=== PATIENT | female | born 1955 | race Caucasian/White ===

== ENCOUNTER 2018-04-29 17:49 | Emergency (ER) | payer BC ==
[2018-04-29] MEDS ORDERED: diphenhydrAMINE 50 MG/ML SDV IVPUSH ONE (18:03)
[2018-04-29] MEDS ORDERED: Ketorolac 30 MG/ML SDV IVPUSH ONE (18:03)
[2018-04-29] MEDS ORDERED: Sodium Chloride 0.9% 1,000 ML IV ONE (18:03)
[2018-04-29] MEDS ORDERED: Metoclopramide 10 MG/2 ML SDV IVPUSH ONE (18:03)
[2018-04-29] MEDS ORDERED: Labetalol 100 MG/20 ML MDV IVPUSH ONE (18:04)
--- NOTE | 2018-04-29 18:05 | EDM.PDOC ---
<Den Sanchez - Last Filed: 04/29/18 20:09> ED HPI GENERAL MEDICAL PROBLEM - General Chief Complaint: Cardiovascular Problem Stated Complaint: BLOOD PRESSURE PROBLEM Time Seen by Provider: 04/29/18 18:02 - Related Data Allergies Allergy/AdvReac Type Severity Reaction Status Date / Time No Known Allergies Allergy Verified 04/30/18 15:13 Home Meds: Home Meds ALPRAZolam [Xanax] 0.5 mg PO BID PRN 04/25/18 [History] Lisinopril 40 mg PO DAILY #30 tablet 04/27/18 [Rx] Metoprolol Succinate [Toprol XL 50mg] 100 mg PO DAILY 04/27/18 [History] Potassium Chloride 20 meq PO DAILY #30 tablet.er 04/27/18 [Rx] Sertraline [Zoloft] 50 mg PO BEDTIME 04/27/18 [History] Zolpidem Tartrate [Zolpidem Tartrate ER] 12.5 mg PO BEDTIME PRN 04/27/18 [ History] Course - Vital Signs Last Recorded V/S: Last Vital Signs Temp 36.1 C 04/29/18 17:57 Pulse 75 04/29/18 19:16 Resp 22 H 04/29/18 18:48 BP 171/78 H 04/29/18 19:16 Pulse Ox 100 04/29/18 17:57 - Orders/Labs/Meds Orders: Active Orders 24 hr Category Date Time Status EKG 12 Lead [EKG Documentation Completion] [RC] STAT Care 04/29/18 18:42 Active Labs: Laboratory Tests 04/29/18 Range/Units 19:23 Troponin I < 0.017 (0.00-0.056) ng/mL Meds: Medications Discontinued Medications Generic Name Dose Route Start Last Admin Trade Name Freq PRN Reason Stop Dose Admin Diphenhydramine HCl 25 mg 04/29/18 18:03 04/29/18 18:12 Benadryl IVPUSH 04/29/18 18:04 25 mg ONETIME ONE Administration Sodium Chloride 1,000 mls @ 1,000 mls/hr 04/29/18 18:03 04/29/18 18:15 Normal Saline IV 04/29/18 19:02 1,000 mls/hr ONETIME ONE Administration Ketorolac Tromethamine 30 mg 04/29/18 18:03 04/29/18 18:13 Toradol IVPUSH 04/29/18 18:04 30 mg ONETIME ONE Administration Labetalol HCl 20 mg 04/29/18 18:04 04/29/18 18:22 Normodyne IVPUSH 04/29/18 18:05 10 mg ONETIME ONE Administration Protocol Lorazepam 1 mg 04/29/18 18:14 04/29/18 18:34 Ativan IVPUSH 04/29/18 18:15 1 mg ONETIME ONE Administration Metoclopramide HCl 10 mg 04/29/18 18:03 04/29/18 18:14 Reglan IVPUSH 04/29/18 18:04 10 mg ONETIME ONE Administration - Re-Assessments/Exams Free Text/Narrative Re-Assessment/Exam: 04/29/18 20:[address] Sanabria. The patient's headache is gone. Her blood pressure is much better at 165/88. I feel we need to increase to 100mg daily of the toprol XL. She is getting a US of her kidneys on Friday and she will see Kylee Sanchez next Friday. Departure - Departure Time of Disposition: 20:15 Disposition: Home, Self-Care 01 Condition: Good Clinical Impression: Hypertensive urgency Headache Qualifiers: Headache type: unspecified Headache chronicity pattern: acute headache Intractability: not intractable Qualified Code(s): R51 - Headache Instructions: Hypertension, [id number], General Headache Without Cause, Easy- to-Read Referrals: PCP,Unknown [Ordering Only Provider] - Kylee Sanchez, BODY PRESS OPERATOR [Primary Care Provider] - 1 Week Forms: ED Department Discharge Additional Instructions: Take your medication as prescribed but take 2 of the toprol XL or metoprolol succinate 100mg daily. Please return if you are worse. - My Orders Last 24 Hours: My Active Orders 04/29/18 18:42 EKG 12 Lead [EKG Documentation Completion] [RC] STAT - Assessment/Plan Last 24 Hours: My Active Orders 04/29/18 18:42 EKG 12 Lead [EKG Documentation Completion] [RC] STAT <Yamilka Sanabria - Last Filed: 04/30/18 19:04> ED HPI GENERAL MEDICAL PROBLEM - General Source of Information: Reports: Patient History Limitations: Reports: No Limitations - History of Present Illness INITIAL COMMENTS - FREE TEXT/NARRATIVE: The patient is a 62-year-old female with a chief complaint of headache and high blood pressure. She has a history of both headaches and high blood pressure. She gets migraine headaches frequently. She states that she tends to get a headache when her blood pressure is high. She was here 2 days ago with blood pressures systolics in the 200s and a headache and was treated with a migraine cocktail and antihypertensive. She was also noted to be profoundly hypokalemic at that time and spent much of the day in the emergency department for potassium repletion. She returns today having had sudden onset return of her headache wrist a few minutes before coming to the emergency department. Headache is diffuse, sharp, similar to prior headaches. She has some nausea no vomiting. No vision changes. No focal weakness. No confusion. Feels similar to prior headaches. She did follow-up with her primary care provider today and her potassium earlier today was 3.1. She said that she did take both her lisinopril and her metoprolol this morning. She seems unsure about the dose. Nowak that her primary care provider increased one of her medications to 50 mg this afternoon?I suspect this would've been the metoprolol. Headache Pain Score (Numeric/FACES): 10 Past Medical History Cardiovascular History: Reports: Hypertension Genitourinary History: Reports: None Neurological History: Reports: Migraines Psychiatric History: Reports: Anxiety Oncologic (Cancer) History: Reports: Breast Other Oncologic History: left mastectomy - Past Surgical History HEENT Surgical History: Reports: Adenoidectomy, Oral Surgery, Tonsillectomy Female Surgical History: Reports: Mastectomy Social & Family History - Family History Family Medical History: Noncontributory - Tobacco Use Smoking Status *Q: Never Smoker - Caffeine Use Caffeine Use: Reports: Soda Other Caffeine Use: Daily - Recreational Drug Use Recreational Drug Use: No ED ROS GENERAL - Review of Systems Review Of Systems: See Below Constitutional: Denies: Fever HEENT: Reports: No Symptoms Respiratory: Denies: Shortness of Breath Cardiovascular: Reports: No Symptoms Endocrine: Reports: No Symptoms GI/Abdominal: Reports: No Symptoms : Reports: No Symptoms Musculoskeletal: Reports: No Symptoms Skin: Reports: No Symptoms Neurological: Reports: Headache ED EXAM, GENERAL - Physical Exam Exam: See Below Exam Limited By: No Limitations General Appearance: Alert, WD/WN, No Apparent Distress Eye Exam: Bilateral Eye: EOMI, Normal Inspection, PERRL Ears: Normal External Exam Nose: Normal Inspection Throat/Mouth: Normal Inspection, Normal Oropharynx, Normal Voice, No Airway Compromise Head: Atraumatic, Normocephalic Neck: Normal Inspection, Supple, Non-Tender, Full Range of Motion Respiratory/Chest: No Respiratory Distress, Lungs Clear, Normal Breath Sounds, Chest Non-Tender Cardiovascular: Normal Peripheral Pulses, Regular Rate, Rhythm, No Murmur GI/Abdominal: Soft, Non-Tender, No Distention. No: Rebound Back Exam: Normal Inspection Extremities: Normal Inspection Neurological: Alert, Oriented, CN II-XII Intact, Normal Cognition, No Motor/ Sensory Deficits Psychiatric: Normal Affect, Normal Mood Skin Exam: Warm, Dry, Intact, Normal Color, No Rash Course - Orders/Labs/Meds Labs: Laboratory Tests 04/29/18 Range/Units 19:23 Troponin I < 0.017 (0.00-0.056) ng/mL - Re-Assessments/Exams Free Text/Narrative Re-Assessment/Exam: 04/29/18 18:55 EKG shows normal sinus rhythm, T-wave inversions leads V2 V3, III and aVF. Less than half millimeter ST depression in the lateral leads. No ST elevation. 04/30/18 19:03
[2018-04-29] MEDS ORDERED: LORazepam 2 MG/ML SDV IVPUSH ONE (18:14)
== END 2018-04-29 20:30 | disposition home or self-care (01) ==
LOC: JD.ED 17:49
DX: I16.0 Hypertensive urgency (principal); R51 Headache; I10 Essential (primary) hypertension
CPT/HCPCS: 36415; 84484; 93005; 96361; 96374; 96375; 99284; J1200; J1885; J2060; J2765; J3490; J7040

== ENCOUNTER 2021-07-28 13:11 | Emergency (ER) | payer MEDICARE, BC ==
[2021-07-28] MEDS ORDERED: Sodium Chloride 0.9% 10 ML Syringe FLUSH PRN (13:21)
[2021-07-28] MEDS ORDERED: Metoclopramide 10 MG/2 ML SDV IVPUSH ONE (13:21)
--- NOTE | 2021-07-28 13:42 | EDM.PDOC ---
ED HPI GENERAL MEDICAL PROBLEM - General Chief Complaint: Abdominal Pain Stated Complaint: ABDOMINAL PAIN Time Seen by Provider: 07/28/21 13:15 Source of Information: Reports: Patient, RN Notes Reviewed History Limitations: Reports: No Limitations - History of Present Illness INITIAL COMMENTS - FREE TEXT/NARRATIVE: The patient is a 66-year-old female who presented to the ER for the evaluation of her ongoing sick symptoms. States that she began feeling ill Friday with a headache, and some nausea. She was seen by her provider Sydney Xavier in our [facility], was given a shot of Toradol, some oral Zofran, and was tested for COVID-19 and the COVID-19 swab was negative. Patient has been taking the Zofran as directed throughout the week but notes that it does not seem to really be helping. States that the nausea goes away for a small amount of time but then returns. States that she has had intermittent loose stools as well. There is sometimes a last half day, and they get better. She does run a daycare, and she did state that she had a child's family that was quarantined with COVID-19 but she did not have any direct exposure to them. Patient is denying any fevers, but may be had some chills, is having some nausea but no vomiting, having intermittent diarrhea, she states also an intermittent cough but no discernible shortness of breath. Treatments CONFIGURATION MANAGEMENT CONSULTANT: Reports: Other (see below) Other Treatments CONFIGURATION MANAGEMENT CONSULTANT: zofran ODT - Related Data Allergies Allergy/AdvReac Type Severity Reaction Status Date / Time No Known Allergies Allergy Verified 07/28/21 13:22 Home Meds: Home Meds Zolpidem Tartrate [Zolpidem Tartrate ER] 12.5 mg PO BEDTIME PRN 04/27/18 [History] Labetalol [Normodyne] 100 mg PO TID #90 tablet 05/03/18 [Rx] Magnesium Oxide 400 mg PO BID #14 tablet 05/03/18 [Rx] Febuxostat 40 mg PO DAILY #30 tablet 07/28/21 [Rx] Metoclopramide HCl 10 mg PO Q6H #20 tablet 07/28/21 [Rx] Past Medical History Cardiovascular History: Reports: Hypertension FAMILY PRACTICE DOCTOR History: Reports: Neurological History: Reports: Headaches, Chronic Psychiatric History: Reports: Anxiety, Other (See Below) Other Psychiatric History: insomnia Oncologic (Cancer) History: Reports: Breast (Left) - Past Surgical History HEENT Surgical History: Reports: Adenoidectomy, Tonsillectomy, Other (See Below) Other HEENT Surgeries/Procedures: tear duct surgery Female Surgical History: Reports: Mastectomy (Left) Oncologic Surgical History: Reports: Mastectomy (Left) Social & Family History - Family History Family Medical History: No Pertinent Family History - Tobacco Use Tobacco Use Status *Q: Never Tobacco User Second Hand Smoke Exposure: No - Caffeine Use Caffeine Use: Reports: Soda Other Caffeine Use: HAS NOT HAD CAFFINE FOR THE PAST WEEK - Recreational Drug Use Recreational Drug Use: No - Living Situation & Occupation Living situation: Reports: , with Spouse Occupation: Employed (Runs own daycare) ED ROS GENERAL - Review of Systems Review Of Systems: Comprehensive ROS is negative, except as noted in HPI. ED EXAM, GI/ABD - Physical Exam Exam: See Below Exam Limited By: No Limitations General Appearance: Alert, WD/WN, No Apparent Distress Respiratory/Chest: No Respiratory Distress, Lungs Clear, Normal Breath Sounds, No Accessory Muscle Use, Chest Non-Tender Cardiovascular: Normal Peripheral Pulses, Regular Rate, Rhythm, No Edema GI/Abdominal Exam: Soft, Tender (generalized), Abnormal Bowel Sounds (hypoactive bowel tones x 4) Extremities: Normal Inspection, Normal Capillary Refill Neurological: Alert, Oriented, Normal Cognition, No Motor/Sensory Deficits Psychiatric: Normal Affect, Normal Mood Skin Exam: Warm, Dry, Intact, Normal Color, No Rash Course - Vital Signs Last Recorded V/S: Last Vital Signs Temp 97.1 F 07/28/21 13:20 Pulse 80 07/28/21 14:53 Resp 18 07/28/21 14:53 BP 123/74 07/28/21 14:53 Pulse Ox 97 07/28/21 14:53 - Orders/Labs/Meds Orders: Active Orders 24 hr Category Date Time Status CULTURE URINE [MREF] Urgent Lab 07/28/21 15:09 Ordered Peripheral IV Insertion Adult [OM.PC] Stat Oth 07/28/21 13:22 Ordered Labs: Laboratory Tests 07/28/21 07/28/21 07/28/21 Range/Units 13:20 13:30 13:50 WBC 7.29 (3.98-10.04) K/mm3 RBC 3.87 L (3.98-5.22) M/mm3 Hgb 11.1 L (11.2-15.7) gm/dl Hct 34.2 (34.1-44.9) % MCV 88.4 (79.4-94.8) fl MCH 28.7 (25.6-32.2) pg MCHC 32.5 (32.2-35.5) g/dl RDW Std Deviation 42.9 (36.4-46.3) fL Plt Count 404 H (182-369) K/mm3 MPV 9.4 (9.4-12.3) fl Neut % (Auto) 60.1 (34.0-71.1) % Lymph % (Auto) 22.5 (19.3-51.7) % [place] % (Auto) 7.4 (4.7-12.5) % Eos % (Auto) 7.5 H (0.7-5.8) Baso % (Auto) 2.1 H (0.1-1.2) % Neut # (Auto) 4.38 (1.56-6.13) K/mm3 Lymph # (Auto) 1.64 (1.18-3.74) K/mm3 [place] # (Auto) 0.54 H (0.24-0.36) K/mm3 Eos # (Auto) 0.55 H (0.04-0.36) K/mm3 Baso # (Auto) 0.15 H (0.01-0.08) K/mm3 Sodium (136-145) mEq/L Potassium (3.5-5.1) mEq/L Chloride (98-107) mEq/L Carbon Dioxide (21-32) mEq/L Anion Gap (5-15) BUN (7-18) mg/dL Creatinine (0.55-1.02) mg/dL Est Cr Clr Drug Dosing mL/min Estimated GFR (MDRD) (>60) mL/min BUN/Creatinine Ratio (14-18) Glucose (70-99) mg/dL Uric Acid (2.6-6.0) mg/dL Calcium (8.5-10.1) mg/dL Total Bilirubin (0.2-1.0) mg/dL GGT (5-55) U/L AST (15-37) U/L ALT (14-59) U/L Alkaline Phosphatase (46-116) U/L C-Reactive Protein (<1.0) mg/dL Total Protein (6.4-8.2) g/dl Albumin (3.4-5.0) g/dl Globulin gm/dL Albumin/Globulin Ratio (1-2) Lipase (73-393) U/L Urine Color Yellow (Yellow) Urine Appearance Clear (Clear) Urine pH 6.0 (5.0-8.0) Ur Specific [place] 1.025 (1.005-1.030) Urine Protein Negative (Negative) Urine Glucose (UA) Negative (Negative) Urine Ketones Negative (Negative) Urine Occult Blood Negative (Negative) Urine Nitrite Negative (Negative) Urine Bilirubin Negative (Negative) Urine Urobilinogen 0.2 (0.2-1.0) Ur Leukocyte Esterase 1+ H (Negative) Urine RBC 0-5 (0-5) /hpf Urine WBC 5-10 H (0-5) /hpf Ur Squamous Epith Cells 0-5 (0-5) /hpf Urine Bacteria Few (FEW) /hpf Urine Mucus Few (FEW) /hpf Influenza Type A RNA Negative (NEGATIVE) Influenza Type B RNA Negative (NEGATIVE) SARS-CoV-2 RNA (VARUN) Negative (NEGATIVE) 07/28/21 07/28/21 Range/Units 13:50 13:50 WBC (3.98-10.04) K/mm3 RBC (3.98-5.22) M/mm3 Hgb (11.2-15.7) gm/dl Hct (34.1-44.9) % MCV (79.4-94.8) fl MCH (25.6-32.2) pg MCHC (32.2-35.5) g/dl RDW Std Deviation (36.4-46.3) fL Plt Count (182-369) K/mm3 MPV (9.4-12.3) fl Neut % (Auto) (34.0-71.1) % Lymph % (Auto) (19.3-51.7) % [place] % (Auto) (4.7-12.5) % Eos % (Auto) (0.7-5.8) Baso % (Auto) (0.1-1.2) % Neut # (Auto) (1.56-6.13) K/mm3 Lymph # (Auto) (1.18-3.74) K/mm3 [place] # (Auto) (0.24-0.36) K/mm3 Eos # (Auto) (0.04-0.36) K/mm3 Baso # (Auto) (0.01-0.08) K/mm3 Sodium 138 (136-145) mEq/L Potassium 4.8 (3.5-5.1) mEq/L Chloride 101 (98-107) mEq/L Carbon Dioxide 26 (21-32) mEq/L Anion Gap 15.8 H (5-15) BUN 17 (7-18) mg/dL Creatinine 2.2 H (0.55-1.02) mg/dL Est Cr Clr Drug Dosing 21.72 mL/min Estimated GFR (MDRD) 22 (>60) mL/min BUN/Creatinine Ratio 7.7 L (14-18) Glucose 95 (70-99) mg/dL Uric Acid 11.3 H (2.6-6.0) mg/dL Calcium 9.5 (8.5-10.1) mg/dL Total Bilirubin 0.3 (0.2-1.0) mg/dL GGT 72 H (5-55) U/L AST 52 H (15-37) U/L ALT 61 H (14-59) U/L Alkaline Phosphatase 202 H (46-116) U/L C-Reactive Protein 1.1 H* (<1.0) mg/dL Total Protein 7.2 (6.4-8.2) g/dl Albumin 3.9 (3.4-5.0) g/dl Globulin 3.3 gm/dL Albumin/Globulin Ratio 1.2 (1-2) Lipase 69 L (73-393) U/L Urine Color (Yellow) Urine Appearance (Clear) Urine pH (5.0-8.0) Ur Specific [place] (1.005-1.030) Urine Protein (Negative) Urine Glucose (UA) (Negative) Urine Ketones (Negative) Urine Occult Blood (Negative) Urine Nitrite (Negative) Urine Bilirubin (Negative) Urine Urobilinogen (0.2-1.0) Ur Leukocyte Esterase (Negative) Urine RBC (0-5) /hpf Urine WBC (0-5) /hpf Ur Squamous Epith Cells (0-5) /hpf Urine Bacteria (FEW) /hpf Urine Mucus (FEW) /hpf Influenza Type A RNA (NEGATIVE) Influenza Type B RNA (NEGATIVE) SARS-CoV-2 RNA (VARUN) (NEGATIVE) Meds: Medications Discontinued Medications Generic Name Dose Route Start Last Admin Trade Name Greggq PRN Reason Stop Dose Admin Metoclopramide HCl 10 mg 07/28/21 13:21 07/28/21 13:41 Metoclopramide 10 Mg/2 Ml Sdv IVPUSH 07/28/21 13:22 10 mg ONETIME ONE Administration Sodium Chloride 10 ml 07/28/21 13:21 07/28/21 13:41 Sodium Chloride 0.9% 10 Ml Syringe FLUSH 10 ml ASDIRECTED PRN Administration Keep Vein Open - Re-Assessments/Exams Free Text/Narrative Re-Assessment/Exam: 07/28/21 13:42 Patient presents to the ER for evaluation of her ongoing illness. Patient will be retested for COVID-19, we will get some basic labs, 2 view abdomen x-ray, get IV started, give her some IV Reglan for initial management. 07/28/21 15:10 Laboratory evaluation has resulted, CBC is essentially unremarkable. Urinalysis is 1+ leukocyte esterase with 5-10 white blood cells per high-power field, will go ahead and do a urine culture for this. Covid and flu swab were negative. Patient does have slightly elevated transaminitis, with her ALP being the highest at 202 creatinine is elevated at 2.2 and GFR is low at 22; this is a change from September 2020 where her creatinine was 1.2 and GFR was 45. BUN is within normal limits; bilirubin is within normal limits. I did go over the metabolic panel with Dr. Styles and he recommended checking a GGT, and a uric acid for ongoing management/investigation. Abdomen x-ray was without any obvious findings of obstruction or constipation. 07/28/21 15:32 Patient's uric acid is elevated at 11.3, and the GGT is unremarkable for today's purposes. Due to the hyperuricemia, it does look as if she is suffering from interstitial nephritis. We will start her on Febuxostat 40 mg daily. Patient be given a 1 month supply of this. It does also appear as if she might be suffering from viral gastroenteritis causing her other symptoms. She will need to have her uric acid reevaluated in roughly 6 weeks time for ongoing management. Patient will be reassessed at bedside. Departure - Departure Time of Disposition: 15:35 Disposition: Home, Self-Care 01 Condition: Good Clinical Impression: Interstitial nephritis, Hyperuricemia, Gastroenteritis - Discharge Information *PRESCRIPTION DRUG MONITORING PROGRAM REVIEWED*: No *COPY OF PRESCRIPTION DRUG MONITORING REPORT IN PATIENT ROBIN: No Prescriptions: Febuxostat 40 mg PO DAILY #30 tablet Instructions: Viral Gastroenteritis, Adult, [id number], Low-Purine Eating Plan Referrals: Sydney Xavier PA-C [Primary Care Provider] - Forms: ED Department Discharge Additional Instructions: You have been evaluated in the ED for nausea/diarrhea and other GI issues. It is likely that this is caused from a viral gastroenteritis. Laboratory evaluation did demonstrate elevated liver enzymes, and elevated uric acid levels along with poor renal function. This is indicative of interstitial nephritis caused by the hyperuricemia (elevated uric acid levels in your blood) albumin started on a medication called febuxostat (Uloric) 40 mg daily. This medication helps to decrease uric acid levels in your blood. You will need to have your blood levels redrawn in about 6 weeks time for reevaluation and to make sure that the medicine is doing what it should. This medication was electronically sent to the [place] pharmacy located in the [facility] grocery store. Over the next 24-48 hours please try to limit diet to clear liquids and advance as tolerated to a bland diet to alleviate symptoms of nausea/vomiting/diarrhea. You were given a prescription for Reglan tablets for ongoing nausea relief. You may take 1 tablet every 6 hours as needed for ongoing nausea. Please return to the ED if your symptoms should change or worsen. Sepsis Event Note (ED) - Evaluation Sepsis Screening Result: No Definite Risk - Focused Exam Vital Signs: Vital Signs Temp Pulse Resp BP Pulse Ox 07/28/21 14:53 80 18 123/74 97 07/28/21 14:29 86 16 131/91 H 100 07/28/21 13:20 97.1 F 90 16 143/77 H 95 - My Orders Last 24 Hours: My Active Orders 07/28/21 13:22 Peripheral IV Insertion Adult [OM.PC] Stat 07/28/21 15:09 CULTURE URINE [MREF] Urgent - Assessment/Plan Last 24 Hours: My Active Orders 07/28/21 13:22 Peripheral IV Insertion Adult [OM.PC] Stat 07/28/21 15:09 CULTURE URINE [MREF] Urgent
--- NOTE | 2021-07-28 14:21 | CR ---
Abdomen: Supine and upright views of the abdomen were obtained. Comparison: No prior abdominal x-ray is available. Bowel gas pattern is within normal limits. No free air is seen. Bony structures show minimal joint space narrowing within the left hip as compared to the right hip. No soft tissue abnormality is seen. No abnormal calcifications are seen. Impression: 1. Finding as noted above. 2. Nothing acute is seen on 2 view abdominal x-ray. Diagnostic code #2
[2021-07-28 14:35] LABS: CORONAVIRUS COVID-19 NAA NEGATIVE (NEGATIVE)
== END 2021-07-28 15:58 | disposition home or self-care (01) ==
LOC: JD.ED 13:11
DX: K52.9 Noninfective gastroenteritis and colitis, unspecified (principal); N12 Tubulo-interstitial nephritis, not specified as acute or chronic; E79.0 Hyperuricemia without signs of inflammatory arthritis and tophaceous disease; I10 Essential (primary) hypertension; Z79.899 Other long term (current) drug therapy; Z20.822 Contact with and (suspected) exposure to COVID-19
CPT/HCPCS: 0240U; 36415; 74019; 80053; 81001; 82977; 83690; 84550; 85025; 86140; 87086; 96374; 99284; J2765

== ENCOUNTER 2021-08-05 12:38 | Emergency (ER) | payer MEDICARE, BC ==
--- NOTE | 2021-08-05 15:33 | EDM.PDOC ---
ED HPI GENERAL MEDICAL PROBLEM - General Chief Complaint: Gastrointestinal Problem Stated Complaint: COLD Time Seen by Provider: 08/05/21 15:10 - History of Present Illness INITIAL COMMENTS - FREE TEXT/NARRATIVE: 66-year-old female returns to the emergency room not doing much better. Patient was seen here about a week ago noticed with interstitial nephritis hyperuricemia and gastroenteritis. Patient was discharged on Reglan she now thinks the Reglan is making her nauseated and given her an upset stomach. She has some Zofran that seems to work a little bit better. The hyperuricemia medicine she was started on she is taking. She just does not feel much better. She gets some lightheadedness with change of position has not reestablished an appetite. Has intermittent bouts of diarrhea this is not an everyday thing but is problematic when it does occur. Generalized Pain Score (Numeric/FACES): 5 - Related Data Allergies Allergy/AdvReac Type Severity Reaction Status Date / Time No Known Allergies Allergy Verified 08/05/21 13:40 Home Meds: Home Meds Zolpidem Tartrate [Zolpidem Tartrate ER] 12.5 mg PO BEDTIME PRN 04/27/18 [History] Metoclopramide HCl 10 mg PO Q6H #20 tablet 07/28/21 [Rx] Ondansetron [Ondansetron ODT] 4 mg PO Q6H PRN #15 tab.rapdis 08/05/21 [Rx] Past Medical History Cardiovascular History: Reports: Hypertension [employer] History: Reports: Neurological History: Reports: Headaches, Chronic Psychiatric History: Reports: Anxiety, Other (See Below) Other Psychiatric History: insomnia Oncologic (Cancer) History: Reports: Breast - Past Surgical History HEENT Surgical History: Reports: Adenoidectomy, Tonsillectomy, Other (See Below) Other HEENT Surgeries/Procedures: tear duct surgery Female Surgical History: Reports: Mastectomy Oncologic Surgical History: Reports: Mastectomy Other Oncologic Surgeries/Procedures: left mastectomy Social & Family History - Family History Family Medical History: No Pertinent Family History - Tobacco Use Tobacco Use Status *Q: Never Tobacco User Second Hand Smoke Exposure: No - Caffeine Use Caffeine Use: Reports: Soda Other Caffeine Use: HAS NOT HAD CAFFINE FOR THE PAST WEEK - Recreational Drug Use Recreational Drug Use: No - Living Situation & Occupation Living situation: Reports: , with Spouse Occupation: Employed (Runs own daycare) ED ROS GENERAL - Review of Systems Review Of Systems: See Below Constitutional: Reports: No Symptoms HEENT: Reports: No Symptoms, Other (Some intermittent dizziness) Respiratory: Reports: No Symptoms Cardiovascular: Reports: No Symptoms Endocrine: Reports: No Symptoms GI/Abdominal: Reports: No Symptoms : Reports: No Symptoms Musculoskeletal: Reports: No Symptoms Skin: Reports: No Symptoms Neurological: Reports: No Symptoms ED EXAM, GENERAL - Physical Exam Exam: See Below Exam Limited By: No Limitations General Appearance: Alert, Moderate Distress Eye Exam: Bilateral Eye: Normal Inspection Ears: Normal External Exam, Normal Canal, Hearing Grossly Normal, Normal TMs Nose: Normal Inspection, Normal Mucosa, No Blood Throat/Mouth: Normal Inspection, Normal Lips, Normal Gums, Normal Oropharynx, Normal Voice, No Airway Compromise Head: Atraumatic, Normocephalic Neck: Normal Inspection, Supple, Non-Tender, Full Range of Motion Respiratory/Chest: No Respiratory Distress, Lungs Clear, Normal Breath Sounds Cardiovascular: Regular Rate, Rhythm, No Edema, No Murmur GI/Abdominal: Normal Bowel Sounds, Soft, Non-Tender Back Exam: Normal Inspection. No: CVA Tenderness (L), CVA Tenderness (R) Extremities: Normal Inspection, No Pedal Edema Neurological: Alert, Oriented, Normal Cognition Skin Exam: Warm, Dry, Intact Course - Vital Signs Last Recorded V/S: Last Vital Signs Temp 36.5 C 08/05/21 13:39 Pulse 78 08/05/21 13:39 Resp 20 08/05/21 13:39 BP 118/79 08/05/21 13:39 Pulse Ox 98 08/05/21 13:39 - Orders/Labs/Meds Orders: Active Orders 24 hr Category Date Time Status CULTURE URINE [MREF] Stat Lab 08/05/21 15:53 Received Sodium Chloride 0.9% [Normal Saline] 1,000 ml Med 08/05/21 16:00 Active IV ASDIRECTED Isolation [COMM] Routine Oth 08/05/21 13:37 Ordered Medication Orders Sodium Chloride (Normal Saline) 1,000 mls @ 150 mls/hr IV ASDIRECTED KVNG Labs: Laboratory Tests 08/05/21 08/05/21 08/05/21 Range/Units 13:42 13:42 15:53 WBC (3.98-10.04) K/mm3 RBC (3.98-5.22) M/mm3 Hgb (11.2-15.7) gm/dl Hct (34.1-44.9) % MCV (79.4-94.8) fl MCH (25.6-32.2) pg MCHC (32.2-35.5) g/dl RDW Std Deviation (36.4-46.3) fL Plt Count (182-369) K/mm3 MPV (9.4-12.3) fl Neut % (Auto) (34.0-71.1) % Lymph % (Auto) (19.3-51.7) % [place] % (Auto) (4.7-12.5) % Eos % (Auto) (0.7-5.8) Baso % (Auto) (0.1-1.2) % Neut # (Auto) (1.56-6.13) K/mm3 Lymph # (Auto) (1.18-3.74) K/mm3 [place] # (Auto) (0.24-0.36) K/mm3 Eos # (Auto) (0.04-0.36) K/mm3 Baso # (Auto) (0.01-0.08) K/mm3 Sodium (136-145) mEq/L Potassium (3.5-5.1) mEq/L Chloride (98-107) mEq/L Carbon Dioxide (21-32) mEq/L Anion Gap (5-15) BUN (7-18) mg/dL Creatinine (0.55-1.02) mg/dL Est Cr Clr Drug Dosing mL/min Estimated GFR (MDRD) (>60) mL/min BUN/Creatinine Ratio (14-18) Glucose (70-99) mg/dL Uric Acid (2.6-6.0) mg/dL Calcium (8.5-10.1) mg/dL Magnesium (1.8-2.4) mg/dL Total Bilirubin (0.2-1.0) mg/dL AST (15-37) U/L ALT (14-59) U/L Alkaline Phosphatase (46-116) U/L Total Protein (6.4-8.2) g/dl Albumin (3.4-5.0) g/dl Globulin gm/dL Albumin/Globulin Ratio (1-2) Urine Color Yellow (Yellow) Urine Appearance Clear (Clear) Urine pH 6.0 (5.0-8.0) Ur Specific [place] 1.020 (1.005-1.030) Urine Protein Negative (Negative) Urine Glucose (UA) Negative (Negative) Urine Ketones Negative (Negative) Urine Occult Blood Negative (Negative) Urine Nitrite Negative (Negative) Urine Bilirubin Negative (Negative) Urine Urobilinogen 0.2 (0.2-1.0) Ur Leukocyte Esterase 1+ H (Negative) Urine RBC 0-5 (0-5) /hpf Urine WBC 10-20 H (0-5) /hpf Ur Epithelial Cells 0-5 (0-5) /hpf Urine Bacteria Few (FEW) /hpf Urine Mucus Not seen (FEW) /hpf SARS-CoV-2 RNA (VARUN) Negative (NEGATIVE) Group A Strep (PCR) Not detected (NOT DETECT) 08/05/21 08/05/21 08/05/21 Range/Units 15:55 15:55 15:55 WBC 7.37 (3.98-10.04) K/mm3 RBC 4.16 (3.98-5.22) M/mm3 Hgb 11.9 (11.2-15.7) gm/dl Hct 36.5 (34.1-44.9) % MCV 87.7 (79.4-94.8) fl MCH 28.6 (25.6-32.2) pg MCHC 32.6 (32.2-35.5) g/dl RDW Std Deviation 42.4 (36.4-46.3) fL Plt Count 442 H (182-369) K/mm3 MPV 9.0 L (9.4-12.3) fl Neut % (Auto) 57.8 (34.0-71.1) % Lymph % (Auto) 25.5 (19.3-51.7) % [place] % (Auto) 7.6 (4.7-12.5) % Eos % (Auto) 7.1 H (0.7-5.8) Baso % (Auto) 1.9 H (0.1-1.2) % Neut # (Auto) 4.26 (1.56-6.13) K/mm3 Lymph # (Auto) 1.88 (1.18-3.74) K/mm3 [place] # (Auto) 0.56 H (0.24-0.36) K/mm3 Eos # (Auto) 0.52 H (0.04-0.36) K/mm3 Baso # (Auto) 0.14 H (0.01-0.08) K/mm3 Sodium 138 (136-145) mEq/L Potassium 4.3 (3.5-5.1) mEq/L Chloride 101 (98-107) mEq/L Carbon Dioxide 26 (21-32) mEq/L Anion Gap 15.3 H (5-15) BUN 17 (7-18) mg/dL Creatinine 2.0 H (0.55-1.02) mg/dL Est Cr Clr Drug Dosing 24.90 mL/min Estimated GFR (MDRD) 25 (>60) mL/min BUN/Creatinine Ratio 8.5 L (14-18) Glucose 94 (70-99) mg/dL Uric Acid 5.7 (2.6-6.0) mg/dL Calcium 9.7 (8.5-10.1) mg/dL Magnesium 2.2 (1.8-2.4) mg/dL Total Bilirubin 0.3 (0.2-1.0) mg/dL AST 78 H (15-37) U/L ALT 61 H (14-59) U/L Alkaline Phosphatase 191 H (46-116) U/L Total Protein 7.5 (6.4-8.2) g/dl Albumin 4.0 (3.4-5.0) g/dl Globulin 3.5 gm/dL Albumin/Globulin Ratio 1.1 (1-2) Urine Color (Yellow) Urine Appearance (Clear) Urine pH (5.0-8.0) Ur Specific [place] (1.005-1.030) Urine Protein (Negative) Urine Glucose (UA) (Negative) Urine Ketones (Negative) Urine Occult Blood (Negative) Urine Nitrite (Negative) Urine Bilirubin (Negative) Urine Urobilinogen (0.2-1.0) Ur Leukocyte Esterase (Negative) Urine RBC (0-5) /hpf Urine WBC (0-5) /hpf Ur Epithelial Cells (0-5) /hpf Urine Bacteria (FEW) /hpf Urine Mucus (FEW) /hpf SARS-CoV-2 RNA (VARUN) (NEGATIVE) Group A Strep (PCR) (NOT DETECT) Meds: Medications Generic Name Dose Route Start Last Admin Trade Name Freq PRN Reason Stop Dose Admin Sodium Chloride 1,000 mls @ 150 mls/hr 08/05/21 16:00 Normal Saline IV ASDIRECTED KVNG Discontinued Medications Generic Name Dose Route Start Last Admin Trade Name Freq PRN Reason Stop Dose Admin Sodium Chloride 1,000 mls @ 999 mls/hr 08/05/21 15:48 08/05/21 15:56 Normal Saline IV 08/05/21 16:48 999 mls/hr ONETIME ONE Administration Sodium Chloride 1,000 mls @ 999 mls/hr 08/05/21 17:15 08/05/21 17:24 Normal Saline IV 08/05/21 18:15 999 mls/hr ONETIME ONE Administration Ondansetron HCl 4 mg 08/05/21 17:25 08/05/21 17:40 Ondansetron 4 Mg Tab.Dis PO 08/05/21 17:26 4 mg ONETIME ONE Administration - Re-Assessments/Exams Free Text/Narrative Re-Assessment/Exam: 08/05/21 18:22 Patient felt much better after a liter of fluid I gave her a second liter while waiting on her uric acid and this helped somewhat she did develop some nausea oral Zofran took care of this she has some at home and I will send a prescription to [facility] in case she runs out. The patient's uric acid is down to 5 down from 11 this is a good improvement renal function is minimally better. It is essential the patient is close follow-up in the clinic. Departure - Departure Time of Disposition: 18:23 Disposition: Home, Self-Care Clinical Impression: Interstitial nephritis, Hyperuricemia, Gastroenteritis - Discharge Information Referrals: PCP,None [Primary Care Provider] - Forms: ED Department Discharge Additional Instructions: Return to the emergency room with any questions problems or worsening symptoms. Follow-up in the clinic for recheck on Friday or so this week. As we discussed use the Zofran 1 every 6 hours as needed for nausea and vomiting really push lots of fluids. I did send another prescription to [facility] in case you need this. As we discussed may be cut your magnesium back in half until you are feeling better your levels are okay right now but this can contribute to the diarrhea. He uric acid is down nicely continue the uric acid reduction medication. Sepsis Event Note (ED) - Focused Exam Vital Signs: Vital Signs Temp Pulse Resp BP Pulse Ox 08/05/21 13:39 36.5 C 78 20 118/79 98 - My Orders Last 24 Hours: My Active Orders 08/05/21 13:37 Isolation [COMM] Routine 08/05/21 15:53 CULTURE URINE [MREF] Stat 08/05/21 16:00 Sodium Chloride 0.9% [Normal Saline] 1,000 ml IV ASDIRECTED - Assessment/Plan Last 24 Hours: My Active Orders 08/05/21 13:37 Isolation [COMM] Routine 08/05/21 15:53 CULTURE URINE [MREF] Stat 08/05/21 16:00 Sodium Chloride 0.9% [Normal Saline] 1,000 ml IV ASDIRECTED
[2021-08-05] MEDS ORDERED: Sodium Chloride 0.9% 1,000 ML IV ONE ×2 (15:48→17:15)
[2021-08-05] MEDS ORDERED: Sodium Chloride 0.9% 1,000 ML IV SCH (16:00)
[2021-08-05] MEDS ORDERED: Ondansetron 4 MG Tab.DIS PO ONE (17:25)
== END 2021-08-05 18:40 | disposition home or self-care (01) ==
LOC: JD.ED 12:38
DX: K52.9 Noninfective gastroenteritis and colitis, unspecified (principal); E79.0 Hyperuricemia without signs of inflammatory arthritis and tophaceous disease; N12 Tubulo-interstitial nephritis, not specified as acute or chronic; I10 Essential (primary) hypertension; Z79.899 Other long term (current) drug therapy; Z20.822 Contact with and (suspected) exposure to COVID-19
CPT/HCPCS: 36415; 80053; 81001; 83735; 84550; 85025; 87086; 87651; 87804; 87807; 99284; A9270; J7030; U0002

== ENCOUNTER 2023-08-06 07:45 | Day surgery (SDC) | payer MEDICARE, BC ==
[~2023-08-06 07:45] MED LIST: Lactated Ringers 1,000 ML IV SCH; Sodium Chloride 0.9% 10 ML Syringe FLUSH PRN; Sodium Chloride 0.9% 10 ML Syringe FLUSH SCH
[2023-08-06] MEDS ORDERED: Lidocaine 1% 6 ML ONE (09:11)
[2023-08-06] MEDS ORDERED: Propofol 200 MG/20 ML SDV ONE (09:11)
[2023-08-06 09:12] LABS: HEMATOCRIT 36.3 % (37.0-47.0); HEMOGLOBIN 12.1 gm/dl (12.0-16.0); MEAN CORPUSCULAR HGB CONC 33.3 g/dl (32.0-36.0); MEAN CORPUSCULAR VOLUME 87.1 fl (83.0-99.0); MEAN PLATELET VOLUME 9.3 fl (9.4-12.3); PLATELET COUNT,PLT 337 K/mm3 (150-400); RED BLOOD CELL COUNT 4.17 M/mm3 (4.10-5.30); WHITE BLOOD CELL COUNT,WBC 7.45 K/mm3 (3.9-11.3)
[2023-08-06 09:21] LABS: ALANINE AMINOTRANSFERASE,ALT 11 U/L (14-59); ALBUMIN 3.9 g/dl (3.4-5.0); ALKALINE PHOSPHATASE 83 U/L (46-116); ANION GAP 15.4 (5-15); ASPARTATE AMNIOTRANSFERASE,AST 21 U/L (15-37); BILIRUBIN TOTAL 0.5 mg/dL (0.2-1.0); BLOOD UREA NITROGEN,BUN 18 mg/dL (7-18); BUN/CREATININE RATIO 10.6 (14-18); CARBON DIOXIDE,CO2 23 mEq/L (21-32); CHLORIDE,CL 101 mEq/L (98-107); CREATININE 1.7 mg/dL (0.55-1.02); ESTIMATED GFR 32 mL/min (>60); GLUCOSE RANDOM 76 mg/dL (70-99); MAGNESIUM 1.4 mg/dL (1.8-2.4); POTASSIUM,K 4.4 mEq/L (3.5-5.1); PROTEIN TOTAL,TP 7.8 g/dl (6.4-8.2); SODIUM,NA 135 mEq/L (136-145)
[2023-08-06] MEDS ORDERED: Rocuronium 50 MG/5 ML Vial ONE (09:45)
[2023-08-06] MEDS ORDERED: ePHEDrine 50 MG/ML SDV ONE (10:04)
== END 2023-08-06 11:47 | disposition home or self-care (01) ==
LOC: JD.SDS 07:45
PROVIDERS: ATTEND Surgery
DX: D12.3 Benign neoplasm of transverse colon (principal); K21.00 Gastro-esophageal reflux disease with esophagitis, without bleeding; K29.50 Unspecified chronic gastritis without bleeding; K29.80 Duodenitis without bleeding; K44.9 Diaphragmatic hernia without obstruction or gangrene; K57.30 Diverticulosis of large intestine without perforation or abscess without bleeding; I12.9 Hypertensive chronic kidney disease with stage 1 through stage 4 chronic kidney disease, or unspecified chronic kidney disease; N18.30 Chronic kidney disease, stage 3 unspecified; E78.5 Hyperlipidemia, unspecified
CPT/HCPCS: 36415; 43239; 45380; 80053; 83735; 85027; J2704; J7120; 00813; J3490

== ENCOUNTER 2024-02-09 13:00 | Emergency (ER) | payer MEDICARE, BC ==
[2024-02-09 13:56] LABS: APPEARANCE,URINE CLEAR (Clear); BILIRUBIN,URINE NEGATIVE (Negative); COLOR,URINE YELLOW (Yellow); GLUCOSE,URINE NEGATIVE (Negative); KETONES,URINE TRACE (Negative); LEUKOCYTE ESTERASE,URINE TRACE (Negative); NITRITE,URINE NEGATIVE (Negative); OCCULT BLOOD,URINE NEGATIVE (Negative); PH,URINE 5.5 (5.0-8.0); PROTEIN,URINE NEGATIVE (Negative); UROBILINOGEN,URINE 0.2 (0.2-1.0)
[2024-02-09 14:18] LABS: RBC,URINE 0-5 /hpf (0-5)
[2024-02-09 14:19] LABS: BACTERIA,URINE FEW /hpf (FEW); EPITHELIAL CELLS,URINE 0-5 /hpf (0-5); MUCUS,URINE FEW /hpf (FEW)
[2024-02-09 14:29] LABS: BASOPHILS ABSOLUTE AUTO 0.1 K/mm3 (0.0-0.2); BASOPHILS PERCENT AUTO 1.4 % (0.0-1.0); EOSINOPHILS ABSOLUTE AUTO 0.5 K/mm3 (0.0-0.4); EOSINOPHILS PERCENT AUTO 7.6 % (0.0-6.0); HEMATOCRIT 29.4 % (37.0-47.0); IMMATURE GRAN ABSOLUTE AUTO 0.01 K/mm3 (0.00-0.05); IMMATURE GRAN PERCENT AUTO 0.2 % (0.0-0.4); LYMPHOCYTES ABSOLUTE AUTO 2.3 K/mm3 (1.0-4.8); LYMPHOCYTES PERCENT AUTO 34.8 % (24.0-44.0); MEAN CORPUSCULAR HEMOGLOBIN 29.5 pg (28.0-32.0); MEAN CORPUSCULAR VOLUME 86.7 fl (83.0-99.0); MEAN PLATELET VOLUME 8.8 fl (9.4-12.3); MONOCYTES ABSOLUTE AUTO 0.4 K/mm3 (0.0-0.8); MONOCYTES PERCENT AUTO 5.3 % (0.0-8.0); NEUTROPHILS ABSOLUTE AUTO 3.3 K/mm3 (1.8-7.7); NEUTROPHILS PERCENT AUTO 50.7 % (41.0-71.0); RED BLOOD CELL COUNT 3.39 M/mm3 (4.10-5.30); WHITE BLOOD CELL COUNT,WBC 6.58 K/mm3 (3.9-11.3)
[2024-02-09 14:30] LABS: PLATELET COUNT,PLT 240 K/mm3 (150-400)
[2024-02-09 14:49] LABS: INR 0.95; PROTHROMBIN TIME 10.2 SECONDS (9.7-12.0)
[2024-02-09 15:04] LABS: A/G RATIO 1.1 (1-2); ALBUMIN 3.5 g/dl (3.4-5.0); ANION GAP 13.6 (5-15); BILIRUBIN TOTAL 0.2 mg/dL (0.2-1.0); BUN/CREATININE RATIO 16.2 (14-18); CALCIUM 8.6 mg/dL (8.5-10.1); CREATININE 1.3 mg/dL (0.55-1.02); EST CRCL DRUG DOSING (CG) 32.56 mL/min; MAGNESIUM 1.6 mg/dL (1.8-2.4); POTASSIUM,K 4.6 mEq/L (3.5-5.1); PROTEIN TOTAL,TP 6.6 g/dl (6.4-8.2)
[2024-02-09] MEDS: LORazepam 2 MG/ML SDV IVPUSH ONE (15:14)
[2024-02-09] MEDS ORDERED: Magnesium Oxide 400 MG Tab PO ONE (17:25)
[2024-02-09] MEDS ORDERED: Sulfamethoxazole/Trimethoprim 800-160 MG Tab PO ONE (17:27)
== END 2024-02-09 18:30 | disposition home or self-care (01) ==
LOC: JD.ED 13:00
DX: H81.12 Benign paroxysmal vertigo, left ear (principal); I12.9 Hypertensive chronic kidney disease with stage 1 through stage 4 chronic kidney disease, or unspecified chronic kidney disease; N18.9 Chronic kidney disease, unspecified; K21.9 Gastro-esophageal reflux disease without esophagitis; Z88.1 Allergy status to other antibiotic agents; Z79.899 Other long term (current) drug therapy
CPT/HCPCS: 36415; 70450; 70450-26; 71045; 71045-26; 80053; 81001; 81003; 83690; 83735; 83880; 84484; 85025; 85610; 87086; 99284

== ENCOUNTER 2024-06-23 09:44 | Inpatient (IN) | payer MEDICARE, BC ==
[2024-06-23] MEDS: 50% Dextrose in Water 50 ML Syringe IVPUSH ONE (09:55)
[2024-06-23] MEDS: 50% Dextrose in Water 50 ML Syringe ONE (09:58)
[2024-06-23] MEDS ORDERED: Sodium Chloride 0.9% 10 ML Syringe FLUSH PRN (10:37)
[2024-06-23] MEDS: Sodium Chloride 0.9% 500 ML IV SCH (11:12)
[2024-06-23 11:30] LABS: BASOPHILS ABSOLUTE AUTO 0.1 K/mm3 (0.0-0.2); BASOPHILS PERCENT AUTO 0.7 % (0.0-1.0); EOSINOPHILS PERCENT AUTO 0.4 % (0.0-6.0); HEMATOCRIT 32.5 % (37.0-47.0); HEMOGLOBIN 10.8 gm/dl (12.0-16.0); IMMATURE GRAN ABSOLUTE AUTO 0.02 K/mm3 (0.00-0.05); IMMATURE GRAN PERCENT AUTO 0.3 % (0.0-0.4); LYMPHOCYTES ABSOLUTE AUTO 1.6 K/mm3 (1.0-4.8); LYMPHOCYTES PERCENT AUTO 22.7 % (24.0-44.0); MEAN CORPUSCULAR HEMOGLOBIN 29.1 pg (28.0-32.0); MEAN CORPUSCULAR HGB CONC 33.2 g/dl (32.0-36.0); MEAN CORPUSCULAR VOLUME 87.6 fl (83.0-99.0); MEAN PLATELET VOLUME 8.9 fl (9.4-12.3); MONOCYTES ABSOLUTE AUTO 0.5 K/mm3 (0.0-0.8); NEUTROPHILS ABSOLUTE AUTO 4.7 K/mm3 (1.8-7.7); NEUTROPHILS PERCENT AUTO 68.9 % (41.0-71.0); PLATELET COUNT,PLT 161 K/mm3 (150-400); RED BLOOD CELL COUNT 3.71 M/mm3 (4.10-5.30); WHITE BLOOD CELL COUNT,WBC 6.87 K/mm3 (3.9-11.3)
[2024-06-23 11:54] LABS: A/G RATIO 1.1 (1-2); ALANINE AMINOTRANSFERASE,ALT 18 U/L (14-59); ALBUMIN 3.7 g/dl (3.4-5.0); ALKALINE PHOSPHATASE 55 U/L (46-116); ANION GAP 15.2 (5-15); ASPARTATE AMNIOTRANSFERASE,AST 26 U/L (15-37); BILIRUBIN TOTAL 0.4 mg/dL (0.2-1.0); BLOOD UREA NITROGEN,BUN 28 mg/dL (7-18); BUN/CREATININE RATIO 14.7 (14-18); CALCIUM 8.9 mg/dL (8.5-10.1); CARBON DIOXIDE,CO2 23 mEq/L (21-32); CHLORIDE,CL 103 mEq/L (98-107); CREATININE 1.9 mg/dL (0.55-1.02); ESTIMATED GFR 28 mL/min (>60); GLUCOSE RANDOM 75 mg/dL (70-99); POTASSIUM,K 5.2 mEq/L (3.5-5.1); PROTEIN TOTAL,TP 7.1 g/dl (6.4-8.2); SODIUM,NA 136 mEq/L (136-145); TROPONIN I HIGH SENSITIVITY 27 pg/mL (<=51)
[2024-06-23 12:03] LABS: INR 1.06; PROTHROMBIN TIME 11.2 SECONDS (9.7-12.0)
[2024-06-23] MEDS ORDERED: Albuterol/Ipratropium 3.0-0.5 MG/3 ML Neb Soln NEB PRN (17:03)
[2024-06-23] MEDS ORDERED: Polyethylene Glycol 3350 Powder 17 GM Packet PO PRN (17:03)
[2024-06-23] MEDS ORDERED: Albuterol 0.083% 2.5 MG/3 ML Neb Soln NEB PRN (17:03)
[2024-06-23] MEDS ORDERED: Docusate Sodium 100 MG Cap PO PRN (17:03)
[2024-06-23] MEDS ORDERED: D5 1/2 NS w/ 20 mEq/L KCl 1,000 ML IV SCH (17:15)
[2024-06-23 17:23] LABS: MAGNESIUM 1.2 mg/dL (1.8-2.4); PHOSPHORUS 3.3 mg/dL (2.6-4.7)
[2024-06-23 18:55] LABS: FOLIC ACID 24.9 ng/mL (8.6-58.9)
[2024-06-23] MEDS: REMDESIVIR 200 MG in Sodium Chloride 0.9% 250 ML IV ONE (19:14)
[2024-06-23] MEDS: Ondansetron 4 MG Tab.DIS PO PRN (19:15)
[2024-06-23] MEDS: Dextrose 5%-0.45% NaCl 1,000 ML IV SCH (20:27)
[2024-06-23] MEDS: Acetaminophen 325 MG Tab PO PRN (21:29)
[2024-06-23] MEDS: Zolpidem 5 MG Tab PO PRN (23:17)
[2024-06-24 06:25] LABS: BASOPHILS ABSOLUTE AUTO 0.1 K/mm3 (0.0-0.2); BASOPHILS PERCENT AUTO 0.8 % (0.0-1.0); EOSINOPHILS PERCENT AUTO 0.3 % (0.0-6.0); HEMOGLOBIN 11.9 gm/dl (12.0-16.0); IMMATURE GRAN ABSOLUTE AUTO 0.02 K/mm3 (0.00-0.05); IMMATURE GRAN PERCENT AUTO 0.3 % (0.0-0.4); LYMPHOCYTES ABSOLUTE AUTO 2.3 K/mm3 (1.0-4.8); LYMPHOCYTES PERCENT AUTO 35.9 % (24.0-44.0); MEAN CORPUSCULAR HEMOGLOBIN 28.9 pg (28.0-32.0); MEAN CORPUSCULAR HGB CONC 33.1 g/dl (32.0-36.0); MEAN CORPUSCULAR VOLUME 87.4 fl (83.0-99.0); MEAN PLATELET VOLUME 9.6 fl (9.4-12.3); MONOCYTES ABSOLUTE AUTO 0.3 K/mm3 (0.0-0.8); MONOCYTES PERCENT AUTO 5.3 % (0.0-8.0); NEUTROPHILS ABSOLUTE AUTO 3.7 K/mm3 (1.8-7.7); NEUTROPHILS PERCENT AUTO 57.4 % (41.0-71.0); PLATELET COUNT,PLT 176 K/mm3 (150-400); RED BLOOD CELL COUNT 4.12 M/mm3 (4.10-5.30); WHITE BLOOD CELL COUNT,WBC 6.46 K/mm3 (3.9-11.3)
[2024-06-24 06:49] LABS: A/G RATIO 1.1 (1-2); ANION GAP 17.3 (5-15); BILIRUBIN TOTAL 0.3 mg/dL (0.2-1.0); BUN/CREATININE RATIO 16.5 (14-18); C-REACTIVE PROTEIN 18.52 mg/dL (<0.30); CALCIUM 8.8 mg/dL (8.5-10.1); CREATININE 1.7 mg/dL (0.55-1.02); EST CRCL DRUG DOSING (CG) 23.3 mL/min; MAGNESIUM 1.3 mg/dL (1.8-2.4); POTASSIUM,K 5.3 mEq/L (3.5-5.1); PROTEIN TOTAL,TP 7.5 g/dl (6.4-8.2)
[2024-06-24] MEDS ORDERED: Magnesium Sulfate (4.06 MEQ/ML) 5 GM/10 ML SDV IV ONE (08:00)
[2024-06-24] MEDS: Sodium Zirconium Cyclosilicate 10 GM Packet PO ONE (08:50)
[2024-06-24] MEDS: Pantoprazole 40 MG Tab.CR PO SCH (08:50)
[2024-06-24] MEDS: Sodium Bicarbonate 650 MG Tab PO SCH (08:50)
[2024-06-24] MEDS: Magnesium Sulfate/Water Premix 4 GM in Premix Bag 1 BAG IV ONE (08:51)
[2024-06-24] MEDS ORDERED: Non-Formulary Medication 1 Each (Cyclosporine [Restasis Multidose] 5.5 ML Drops) SCH (09:00)
[2024-06-24] MEDS: Fluticasone NASAL Spray 16 GM Bottle NASBOTH SCH (09:02)
[2024-06-24] MEDS: Benzocaine/Cetylpyridinium/Menthol Lozenge MUCMEM PRN (13:16)
[2024-06-24] MEDS: Benzocaine 20% Topical Spray UD MUCMEM PRN (13:16)
[2024-06-24] MEDS: REMDESIVIR 100 MG in Sodium Chloride 0.9% 250 ML IV SCH (17:35)
[2024-06-24] MEDS: prednisoLONE Acetate 1% Ophth Susp 5 ML Bottle EYEBOTH SCH (18:16)
[2024-06-24] MEDS: cefTRIAXone 2 GM in Sodium Chloride 0.9% 100 ML IV SCH (18:59)
[2024-06-24] MEDS: Acetaminophen 650 MG Supp RECTAL PRN (19:00)
[2024-06-25 05:07] LABS: BASOPHILS PERCENT AUTO 0.6 % (0.0-1.0); EOSINOPHILS ABSOLUTE AUTO 0.2 K/mm3 (0.0-0.4); EOSINOPHILS PERCENT AUTO 2.4 % (0.0-6.0); HEMATOCRIT 36.9 % (37.0-47.0); HEMOGLOBIN 12.6 gm/dl (12.0-16.0); IMMATURE GRAN ABSOLUTE AUTO 0.05 K/mm3 (0.00-0.05); IMMATURE GRAN PERCENT AUTO 0.7 % (0.0-0.4); LYMPHOCYTES ABSOLUTE AUTO 1.7 K/mm3 (1.0-4.8); LYMPHOCYTES PERCENT AUTO 24.8 % (24.0-44.0); MEAN CORPUSCULAR HEMOGLOBIN 28.8 pg (28.0-32.0); MEAN CORPUSCULAR HGB CONC 34.1 g/dl (32.0-36.0); MEAN CORPUSCULAR VOLUME 84.4 fl (83.0-99.0); MEAN PLATELET VOLUME 9.1 fl (9.4-12.3); MONOCYTES ABSOLUTE AUTO 0.5 K/mm3 (0.0-0.8); MONOCYTES PERCENT AUTO 6.6 % (0.0-8.0); NEUTROPHILS ABSOLUTE AUTO 4.4 K/mm3 (1.8-7.7); NEUTROPHILS PERCENT AUTO 64.9 % (41.0-71.0); PLATELET COUNT,PLT 163 K/mm3 (150-400); RED BLOOD CELL COUNT 4.37 M/mm3 (4.10-5.30); WHITE BLOOD CELL COUNT,WBC 6.78 K/mm3 (3.9-11.3)
[2024-06-25 05:28] LABS: ALBUMIN 3.5 g/dl (3.4-5.0); BILIRUBIN TOTAL 0.4 mg/dL (0.2-1.0); BUN/CREATININE RATIO 13.3 (14-18); C-REACTIVE PROTEIN 17.05 mg/dL (<0.30); CREATININE 1.5 mg/dL (0.55-1.02); MAGNESIUM 1.9 mg/dL (1.8-2.4); PROTEIN TOTAL,TP 7.2 g/dl (6.4-8.2)
[2024-06-25 05:44] LABS: EST CRCL DRUG DOSING (CG) 26.4 mL/min
[2024-06-25] MEDS: Enoxaparin 30 MG/0.3 ML Syringe SUBCUT SCH (13:51)
[2024-06-26 04:00] LABS: APPEARANCE,URINE CLEAR (Clear); BILIRUBIN,URINE NEGATIVE (Negative); COLOR,URINE YELLOW (Yellow); GLUCOSE,URINE NEGATIVE (Negative); KETONES,URINE NEGATIVE (Negative); LEUKOCYTE ESTERASE,URINE 1+ (Negative); NITRITE,URINE NEGATIVE (Negative); OCCULT BLOOD,URINE 2+ (Negative); PH,URINE 6.5 (5.0-8.0); PROTEIN,URINE 1+ (Negative); UROBILINOGEN,URINE 0.2 (0.2-1.0)
[2024-06-26 04:14] LABS: BACTERIA,URINE MANY /hpf (FEW); MUCUS,URINE NOT SEEN /hpf (FEW); RBC,URINE 0-5 /hpf (0-5); SQUAMOUS EPITHELIAL CELLS,UR 0-5 /hpf (0-5)
[2024-06-26 06:49] LABS: ALBUMIN 3.2 g/dl (3.4-5.0); BILIRUBIN TOTAL 0.4 mg/dL (0.2-1.0); BUN/CREATININE RATIO 13.8 (14-18); C-REACTIVE PROTEIN 16.53 mg/dL (<0.30); CALCIUM 7.8 mg/dL (8.5-10.1); CREATININE 1.3 mg/dL (0.55-1.02); EST CRCL DRUG DOSING (CG) 30.49 mL/min; PROTEIN TOTAL,TP 6.5 g/dl (6.4-8.2)
[2024-06-26 06:58] LABS: ANION GAP 16.2 (5-15)
[2024-06-26 07:00] LABS: POTASSIUM,K 4.2 mEq/L (3.5-5.1)
[2024-06-26] MEDS: Sodium Bicarbonate 650 MG Tab PO SCH (08:27)
[2024-06-26 15:24] LABS: ANION GAP 16.7 (5-15); CALCIUM 7.7 mg/dL (8.5-10.1); CREATININE 1.2 mg/dL (0.55-1.02); EST CRCL DRUG DOSING (CG) 33.03 mL/min; POTASSIUM,K 4.7 mEq/L (3.5-5.1)
[2024-06-26] MEDS: Acetaminophen 650 MG Supp RECTAL PRN (16:41)
[2024-06-26] MEDS: Sodium Chloride 0.9% 1,000 ML IV SCH (17:55)
[2024-06-26] MEDS: REMDESIVIR 100 MG in Sodium Chloride 0.9% 250 ML IV SCH (17:55)
[2024-06-26] MEDS: Ibuprofen 400 MG Tab PO ONE (19:36)
[2024-06-26] MEDS: Loperamide 2 MG Cap PO ONE (22:50)
[2024-06-27 05:48] LABS: BASOPHILS PERCENT AUTO 0.3 % (0.0-1.0); EOSINOPHILS PERCENT AUTO 0.2 % (0.0-6.0); HEMATOCRIT 27.7 % (37.0-47.0); IMMATURE GRAN ABSOLUTE AUTO 0.02 K/mm3 (0.00-0.05); IMMATURE GRAN PERCENT AUTO 0.3 % (0.0-0.4); LYMPHOCYTES ABSOLUTE AUTO 1.5 K/mm3 (1.0-4.8); MEAN CORPUSCULAR HEMOGLOBIN 29.1 pg (28.0-32.0); MEAN CORPUSCULAR HGB CONC 35.4 g/dl (32.0-36.0); MEAN CORPUSCULAR VOLUME 82.2 fl (83.0-99.0); MONOCYTES ABSOLUTE AUTO 0.4 K/mm3 (0.0-0.8); MONOCYTES PERCENT AUTO 5.9 % (0.0-8.0); NEUTROPHILS ABSOLUTE AUTO 4.3 K/mm3 (1.8-7.7); NEUTROPHILS PERCENT AUTO 69.3 % (41.0-71.0); PLATELET COUNT,PLT 182 K/mm3 (150-400); RED BLOOD CELL COUNT 3.37 M/mm3 (4.10-5.30); WHITE BLOOD CELL COUNT,WBC 6.25 K/mm3 (3.9-11.3)
[2024-06-27 05:52] LABS: HEMOGLOBIN 9.8 gm/dl (12.0-16.0)
[2024-06-27 05:56] LABS: ALBUMIN 2.9 g/dl (3.4-5.0); BILIRUBIN TOTAL 0.3 mg/dL (0.2-1.0); C-REACTIVE PROTEIN 15.14 mg/dL (<0.30); CALCIUM 7.1 mg/dL (8.5-10.1); CREATININE 1.2 mg/dL (0.55-1.02); EST CRCL DRUG DOSING (CG) 32.89 mL/min; PROTEIN TOTAL,TP 5.9 g/dl (6.4-8.2)
[2024-06-27 06:34] LABS: ANION GAP 16.9 (5-15)
[2024-06-27 06:47] LABS: POTASSIUM,K 3.9 mEq/L (3.5-5.1)
== END 2024-06-27 15:52 | disposition home or self-care (01) | DRG 178 ==
LOC: JD.ED 09:44 → JD.MS 17:01
PROVIDERS: ADMIT Family Medicine; ATTEND Family Medicine
PROC: XW033E5 Introduction of Remdesivir Anti-infective into Peripheral Vein, Percutaneous Approach, New Technology Group 5 (ICD-10-PCS; principal; 2024-06-23)
DX: U07.1 COVID-19 (principal); C78.00 Secondary malignant neoplasm of unspecified lung; N18.9 Chronic kidney disease, unspecified; C79.51 Secondary malignant neoplasm of bone; D84.821 Immunodeficiency due to drugs; C78.7 Secondary malignant neoplasm of liver and intrahepatic bile duct; G93.49 Other encephalopathy; N39.0 Urinary tract infection, site not specified; Z66 Do not resuscitate; K21.9 Gastro-esophageal reflux disease without esophagitis; I12.9 Hypertensive chronic kidney disease with stage 1 through stage 4 chronic kidney disease, or unspecified chronic kidney disease; F41.9 Anxiety disorder, unspecified; E83.42 Hypomagnesemia; C50.912 Malignant neoplasm of unspecified site of left female breast; D63.1 Anemia in chronic kidney disease; N18.31 Chronic kidney disease, stage 3a; E16.2 Hypoglycemia, unspecified; E87.5 Hyperkalemia; E86.0 Dehydration; Z88.8 Allergy status to other drugs, medicaments and biological substances; Z79.899 Other long term (current) drug therapy; Z87.19 Personal history of other diseases of the digestive system; Z90.89 Acquired absence of other organs; Z98.890 Other specified postprocedural states; Z98.51 Tubal ligation status; Z90.12 Acquired absence of left breast and nipple; Z17.0 Estrogen receptor positive status [ER+]
CPT/HCPCS: 36415; 71045; 80053; 82607; 82746; 82947 ×2; 83735; 84100; 84484; 85025; 85610; 93005; J7030; 70450; 70450-26; 80048; 81001; 84145; 86140; 87040; 87086; 94760; 94761; 97116-GP; 97162-GP; 97530-GP; A9270-GY; J0248; J0696; J1650; J3475; J3490; J7050; J7799

== ENCOUNTER 2024-08-25 08:05 | Day surgery (SDC) | payer MEDICARE, BC ==
[~2024-08-25 08:05] MED LIST changes: +HYDROmorphone 0.5 MG/0.5 ML Syringe IVPUSH PRN; -Lactated Ringers 1,000 ML IV SCH; +Ondansetron 4 MG/2 ML SDV IVPUSH PRN; +fentaNYL 100 MCG/2 ML SDV IVPUSH PRN
[2024-08-25] MEDS: Lactated Ringers 1,000 ML IV SCH (08:40)
[2024-08-25] MEDS ORDERED: Propofol 200 MG/20 ML SDV ONE (08:53)
== END 2024-08-25 10:42 | disposition home or self-care (01) ==
LOC: JD.SDS 08:05
PROVIDERS: ATTEND Surgery
DX: K21.00 Gastro-esophageal reflux disease with esophagitis, without bleeding (principal); K29.50 Unspecified chronic gastritis without bleeding; K44.9 Diaphragmatic hernia without obstruction or gangrene; I12.9 Hypertensive chronic kidney disease with stage 1 through stage 4 chronic kidney disease, or unspecified chronic kidney disease; N18.32 Chronic kidney disease, stage 3b; F41.9 Anxiety disorder, unspecified; Z79.899 Other long term (current) drug therapy
CPT/HCPCS: 43239; J1642; J2704; J7120; 00731

== ENCOUNTER 2024-12-06 16:41 | Emergency (ER) | payer MEDICARE, BC | END 2024-12-06 17:31 | disposition left against medical advice (07) | LOC: JD.ED 16:41 | DX: Z53.21 Procedure and treatment not carried out due to patient leaving prior to being seen by health care provider (principal) ==